=== PATIENT | female | born 1955 | race Asian ===

== ENCOUNTER → 2018-09-04 | Outpatient (CLI) | payer SELFPAY | END | disposition home or self-care (01) | LOC: RADPV 12:40 | PROVIDERS: ATTEND Internal Medicine | DX: M17.11 Unilateral primary osteoarthritis, right knee (principal); R22.1 Localized swelling, mass and lump, neck | CPT/HCPCS: 76536 ==

== ENCOUNTER 2023-05-19 20:44 | Emergency (ER) | payer MEDICARE, OTHER ==
[~2023-05-19] VITALS: Ht 162.6 cm; Wt 54.5 kg
[2023-05-19 21:04] VITALS: TEMP 97.7
[2023-05-19] MEDS ORDERED: LOSA-381 PO (21:06)
[2023-05-19 21:38] LABS: BASOPHILS % (AUTO) 0.6 % (0.0-2.0); EOSINOPHILS % (AUTO) 1.9 % (1.0-6.0); HEMATOCRIT 43.9 % (36-46); HEMOGLOBIN 14.6 g/dL (12.0-16.0); LYMPHOCYTES # (AUTO) 3.4 K/uL (1.0-4.8); LYMPHOCYTES % (AUTO) 52.2 % (22.0-44.0); MEAN CORPUSCULAR HEMOGLOBIN 30.4 pg (26.0-34.0); MEAN CORPUSCULAR HGB CONC 33.2 G/dL (31.0-37.0); MEAN CORPUSCULAR VOLUME 92 fL (80-100); MONOCYTES # (AUTO) 0.4 K/uL (0.1-1.0); MONOCYTES % (AUTO) 6.7 % (2.0-9.0); NEUTROPHILS # (AUTO) 2.5 K/uL (1.8-7.7); NEUTROPHILS % (AUTO) 38.6 % (40.0-70.0); PLATELET COUNT (AUTO) 311 K/uL (150-450); WHITE BLOOD COUNT (AUTO) 6.5 K/uL (4.5-11.0)
[2023-05-19 21:45] LABS: ANION GAP 11 mmol/L (8-16); CALCIUM, TOTAL 9.7 mg/dL (8.8-10.5); CARBON DIOXIDE 26 mmol/L (22-29); CHLORIDE 101 mmol/L (98-107); CREATININE 0.81 mg/dL (0.60-1.30); GLOMERULAR FILTR. RATE CALC > 60 mL/min (>60); GLUCOSE,RANDOM 136 mg/dL (70-110); SODIUM SERUM 138 mmol/L (136-145); UREA NITROGEN, BLOOD 14 mg/dL (7-18)
[2023-05-19 21:50] LABS: ALANINE AMINOTRANSFERASE 29 U/L (12-78); ALBUMIN 3.9 g/dL (3.4-5.0); ALKALINE PHOSPHATASE 79 U/L (46-116); ASPARTATE AMINOTRANSFERASE 28 U/L (15-37); BILIRUBIN,TOTAL 0.5 mg/dL (0.1-1.0); LIPASE 25 U/L (16-77); TOTAL PROTEIN, SERUM 7.5 g/dL (6.4-8.2)
[2023-05-19 21:54] LABS: TROPONIN I-HIGH SENSITIVITY Less Than 4 ng/L (<51)
[2023-05-19 22:26] VITALS: BP 140/79; PULSE 86; RESP 19
[2023-05-19] MEDS: MECLIZINE HCL 25 MG TABLET PO ONE (22:51)
[2023-05-19] MEDS: ONDANSETRON HCL 4 MG/2 ML VIAL IVP ONE (22:51)
[2023-05-19] MEDS ORDERED: METO25XL PO (23:44)
[2023-05-19] MEDS ORDERED: MECL-302 PO (23:47)
== END 2023-05-20 00:12 | disposition home or self-care (01) ==
LOC: EMS 21:19
DX: R42 Dizziness and giddiness (principal); E78.00 Pure hypercholesterolemia, unspecified; I10 Essential (primary) hypertension; Z88.6 Allergy status to analgesic agent; Z88.8 Allergy status to other drugs, medicaments and biological substances
CPT/HCPCS: 99283; 96374; 80053; 83690; 84484; 85025; 36415; 93005; J2405